=== PATIENT | female | born 1965 | race Caucasian/White ===

== ENCOUNTER 2018-08-19 19:34 | Emergency (ER) | payer OTHER ==
[~2018-08-19] VITALS: Ht 160 cm; Wt 56.7 kg
[2018-08-19 19:49] LABS: ABSOLUTE EOSINOPHILS 0.1 thou/uL (0.0-0.7); ABSOLUTE LYMPHOCYTES 3.5 thou/uL (0.8-5.3); ABSOLUTE MONOCYTES 0.5 thou/uL (0.0-1.2); ABSOLUTE NEUTROPHILS 4.2 thou/uL (1.6-8.1); BASOPHILS 0.5 %; EOSINOPHILS 1.7 %; HEMOGLOBIN 14.3 gm/dL (12.0-15.0); LYMPHOCYTES 41.9 %; MCH 29.5 pg (26.0-34.0); MCHC 34.1 g/dL (28.0-37.0); MCV 86.6 fL (80.0-100.0); MONOCYTES 5.6 %; MPV 7.2 fl. (7.2-11.1); NUCLEATED RBCS 0 /100WBC; PLATELET COUNT* 256 thou/uL (150-400); POLYS 50.3 %; RBC 4.84 mil/uL (4.20-5.00); RDW-CV 15.9 % (10.5-14.5); WBC 8.4 thou/uL (4.0-11.0)
[2018-08-19 19:58] LABS: ANION GAP 14 mmol/L (7-16); BUN 15 mg/dL (7-18); CALCIUM 8.9 mg/dL (8.5-10.1); CHLORIDE 106 mmol/L (98-107); CO2 23 mmol/L (21-32); CREATININE 0.8 mg/dL (0.6-1.3); GLUCOSE 155 mg/dL (70-99); POTASSIUM 4.2 mmol/L (3.5-5.1); SODIUM 143 mmol/L (136-145)
[2018-08-19 20:00] LABS: PROTIME 10.2 Seconds (9.20-11.50)
[2018-08-19 20:08] LABS: ALBUMIN 3.9 g/dL (3.4-5.0); ALKALINE PHOSPHATASE 108 U/L (46-116); LIPASE 59 U/L (73-393); NT-PRO BRAIN NAT PEPTIDE 11 pg/mL (<300); SGOT 16 U/L (15-37); SGPT 26 U/L (30-65); TOTAL BILIRUBIN 0.5 mg/dL (<0.1-1.0); TOTAL PROTEIN 7.9 g/dL (6.4-8.2); TROPONIN-I LEVEL <0.06 ng/mL (<0.06)
[2018-08-19 20:35] LABS: URINE BILIRUBIN NEGATIVE (Negative); URINE BLOOD 3+ (Negative); URINE CLARITY CLEAR; URINE COLOR YELLOW; URINE GLUCOSE-RANDOM NEGATIVE (Negative); URINE KETONES NEGATIVE (Negative); URINE LEUKOCYTES-REFLEX TRACE (Negative); URINE PROTEIN TRACE (Negative); URINE SPECIFIC GRAVITY >= 1.030 (1.005-1.030); URINE UROBILINOGEN 0.2 E.U./dl (0.2-1.0)
[2018-08-19 20:36] LABS: URINE NITRITE-REFLEX POSITIVE (Negative)
[2018-08-19 20:47] LABS: AMP/METHAMP Negative (Negative); BARBITURATES Negative (Negative); BENZODIAZEPINES Negative (Negative); COCAINE Negative (Negative); METHADONE Negative (Negative); OPIATES Negative (Negative); PCP Negative (Negative); THC Negative (Negative)
[2018-08-19 20:54] LABS: CASTS None Seen /LPF (None Seen); MUCUS None Seen strn/LPF (None Seen); SQUAMOUS >10 Many /LPF (0-3); URINE RBC >20 Many /HPF (0-2)
[2018-08-19 20:55] LABS: BACTERIA-REFLEX >30 Many /HPF (None Seen); CRYSTALS None Seen /LPF (None Seen); URINE WBC-REFLEX 0-5 Rare /HPF (0-5)
[2018-08-19] MEDS ORDERED: CIPROFLOXACIN500 M1 PO (21:57)
[2018-08-19 22:09] VITALS: BP 125/80
--- NOTE | 2018-08-20 17:01 | EKG ---
[place] [address] ELECTROCARDIOGRAM REPORT Name: TYSON,MARY Rangel Room: [facility]#: [id number] Admission: 08/19/18 Attend Phys: Discharge: 08/19/18 Date of : 69 Report #: [id number] THIS REPORT FOR: //name// [facility] ED Test Date: 2018-08-19 Test Time: 19:39:12 Pat Name: MARY MEHTA Department: Room: Gender: F [employer] Engineer: CARA : 1965 Requested By: Yaneli Winkler Order Number: [id number] MD: Nabil Bettencourt Measurements Intervals [place] Rate: 97 P: 67 AR: 119 QRS: -28 QRSD: 90 T: 67 QT: 361 QTc: 459 Interpretive Statements Sinus rhythm Borderline short AR interval Borderline left axis deviation No previous ECG available for comparison Electronically Signed On 08-20-2018 17:01:09 CDT by Nabil Bettencourt [email or web address] <ELECTRONICALLY SIGNED> By: Nabil Bettencourt MD, [facility] 08/20/18 1701 1939 38 Nabil Bettencourt MD, FACC /EPI
== END 2018-08-19 22:10 ==
LOC: M.ERS 19:34
PROVIDERS: Emergency Medicine
DX: N39.0 Urinary tract infection, site not specified (principal); Z90.49 Acquired absence of other specified parts of digestive tract; Z90.710 Acquired absence of both cervix and uterus